=== PATIENT | female | born 1985 | race Asian ===

== ENCOUNTER 2018-08-22 19:54 | Emergency (ER) | payer BC, OTHER ==
[2018-08-22] MEDS ORDERED: KETOROLAC 30 MG/1 ML SDV IVP ONE (20:52)
[2018-08-22] MEDS ORDERED: NS 1,000 ML IV ONE (20:52)
[2018-08-22] MEDS ORDERED: ONDANSETRON 4 MG/2 ML VIAL IVP ONE (20:52)
[2018-08-22 20:55] LABS: PLATELET COUNT 305 10^3/uL (150-400)
--- NOTE | 2018-08-22 21:01 | EDPHY ---
H & P Stated Complaint: abd pain, n/v constipation, small bloody stool Time Seen by Provider: 08/22/18 20:49 HPI/ROS: CHIEF COMPLAINT: Sore throat, nausea vomiting and diarrhea and abdominal cramping HISTORY OF PRESENT ILLNESS: The patient is a 32 yo healthy female who reports having history of headache for the last 2 days and then a sore throat that began yesterday. She states that her son is also sick with an upper respiratory tract infection. Today she developed some lower abdominal cramping and then had diarrhea and then vomited once. Since then she has had frequent episodes of stomach cramping and has tried to have more bowel movements but has not been able to. She did have a small amount of the mucousy blood. No she denies having any upper abdominal pain. She states that the cramping and pain is primarily suprapubic. She denies dysuria or frequency. No surgical history. Severity: Moderate Modifying factors: Intermittent, currently absent REVIEW OF SYSTEMS: Constitutional: denies: chills, fever, recent illness, recent injury EENTM: denies: blurred vision, double vision, nose congestion Respiratory: denies: cough, shortness of breath Cardiac: denies: chest pain, irregular heart rate, lightheadedness, palpitations Gastrointestinal/Abdominal: denies: abdominal pain, diarrhea, nausea, vomiting, blood streaked stools Genitourinary: denies: dysuria, frequency, hematuria, pain Musculoskeletal: denies: joint pain, muscle pain Skin: denies: lesions, rash, jaundice, bruising Neurological: denies: headache, numbness, paresthesia, tingling, dizziness, weakness Hematologic/Lymphatic: denies: blood clots, easy bleeding, easy bruising Immunologic/allergic: denies: HIV/AIDS, transplant 10 systems reviewed and negative except as noted EXAM: GENERAL: Well-appearing, well-nourished and in no acute distress. HEAD: Atraumatic, normocephalic. EYES: Pupils equal round and reactive to light, extraocular movements intact, sclera anicteric, conjunctiva are normal. ENT: TMs normal, nares patent, oropharynx clear without exudates. Moist mucous membranes. NECK: Normal range of motion, supple without lymphadenopathy or JVD. LUNGS: Breath sounds clear to auscultation bilaterally and equal. No wheezes rales or rhonchi. HEART: Regular rate and rhythm without murmurs, rubs or gallops. ABDOMEN: Soft, nontender, normoactive bowel sounds. No guarding, no rebound. No masses appreciated. BACK: No CVA tenderness, no spinal tenderness, step-offs or deformities EXTREMITIES: Normal range of motion, no pitting or edema. No clubbing or cyanosis. NEUROLOGICAL: Cranial nerves II through XII grossly intact. Normal speech, normal gait. 5/5 strength, normal movement in all extremities, normal sensation , normal reflexes PSYCH: Normal mood, normal affect. SKIN: Warm, dry, normal turgor, no visible rashes or lesions. Source: Patient Exam Limitations: No limitations - Personal History LMP (Females 10-55): 8-14 Days Ago Current Tetanus Diphtheria and Acellular Pertussis (TDAP): Yes - Medical/Surgical History Hx Asthma: No Hx Chronic Respiratory Disease: No Hx Diabetes: No Hx Cardiac Disease: No Hx Renal Disease: No Hx Cirrhosis: No Hx Alcoholism: No Hx HIV/AIDS: No Hx Splenectomy or Spleen Trauma: No - Family History Significant Family History: No pertinent family hx - Social History Smoking Status: Never smoked Alcohol Use: None Constitutional: Initial Vital Signs Temperature (C) 37 C 08/22/18 19:58 Heart Rate 71 08/22/18 19:58 Respiratory Rate 20 08/22/18 19:58 Blood Pressure 113/64 08/22/18 19:58 O2 Sat (%) 96 08/22/18 19:58 O2 Delivery Mode Room Air Allergies/Adverse Reactions: No Known Allergies Allergy (Unverified 08/22/18 19:58) Home Medications: Medication Instructions Recorded NK [No Known Home Meds] 08/22/18 Medical Decision Making ED Course/Re-evaluation: Patient's abdominal exam is benign. Her symptoms are consistent with gastroenteritis. She does have erythematous throat. Will swab for strep throat. Lab work sent previously by nursing protocol. Will add fluids and anti nausea medication. 9:35 p.m. the patient's abdominal exam remains nontender. She states that she is no longer having pain or cramping or nausea. She has received fluids. Her lab work is reassuring. It her white count is only slightly elevated which is expected in the setting of vomiting and diarrhea. We discussed treatment. She is eager to go home. We discussed indications for returning including fevers, worsening pain, intractable vomiting cetera. Differential Diagnosis: Partial list of the Differential diagnosis considered include but were not limited to; gastroenteritis, food poisoning, urinary tract infection, appendicitis and although unlikely based on the history and physical exam, I also considered ovarian cyst, PID, torsion kidney stone. I discussed these differential diagnoses and the plan with the patient as well as the usual and expected course. The patient understands that the diagnosis is provisional and that in medicine we are not always correct and that further workup is often warranted. Usual and customary warnings were given. All of the patient's questions were answered. The patient was instructed to return to the emergency department should the symptoms at all worsen or return, otherwise to followup with the physician as we discussed. - Data Points Laboratory Results: Laboratory Results 08/22/18 20:16 08/22/18 20:16 08/22/18 Unknown Group A Strep DNA NEGATIVE (NEGATIVE) Medications Given: Discontinued Medications Sodium Chloride (Ns) 1,000 mls @ 0 mls/hr IV ONCE ONE; Wide Open PRN Reason: Protocol Stop: 08/22/18 20:53 Last Admin: 08/22/18 21:03 Dose: 1,000 mls Ketorolac Tromethamine (Toradol) 15 mg IVP EDNOW ONE Stop: 08/22/18 20:53 Last Admin: 08/22/18 21:04 Dose: 15 mg Ondansetron HCl (Zofran) 4 mg IVP EDNOW ONE Stop: 08/22/18 20:53 Last Admin: 08/22/18 21:03 Dose: 4 mg Ondansetron HCl (Zofran Odt 4 Mg Prepack#2) 1 btl TAKEHOME EDNOW ONE Stop: 08/22/18 21:45 Last Admin: 08/22/18 21:52 Dose: 1 btl Departure - Departure Disposition: Home, Routine, Self-Care Clinical Impression: Acute gastroenteritis Condition: Fair Instructions: Ondansetron (By mouth), Gastroenteritis (ED) Referrals: NONE *PRIMARY CARE P,. [Primary Care Provider] - As per Instructions ED,PHYSICIAN ONDUTY [Medical Doctor] - 1 day, if not improved
[2018-08-22 21:41] VITALS: BP 98/64
[2018-08-22] MEDS ORDERED: ONDANSETRON 4MG PREPACK#2 BTL TAKEHOME ONE (21:44)
== END 2018-08-22 21:53 | disposition home or self-care (01) ==
DX: K52.9 Noninfective gastroenteritis and colitis, unspecified (principal); E86.9 Volume depletion, unspecified
CPT/HCPCS: 96374; J1885; J2405